=== PATIENT | male | born 1995 | race African-American/Black ===

== ENCOUNTER 2018-05-28 04:42 | Emergency (ER) | payer OTHER ==
[2018-05-28] MEDS ORDERED: Albuterol/Ipratropium 3.0-0.5 MG/3 ML Neb Soln ONE (04:56)
[2018-05-28] MEDS ORDERED: Albuterol/Ipratropium 3.0-0.5 MG/3 ML Neb Soln NEB ONE (05:02)
[2018-05-28] MEDS ORDERED: LORazepam 1 MG Tab PO ONE (05:09)
--- NOTE | 2018-05-28 05:20 | EDM.PDOC ---
ED HPI GENERAL MEDICAL PROBLEM - General Chief Complaint: Respiratory Problem Stated Complaint: NEB TREATMENT Time Seen by Provider: 05/28/18 05:07 Source of Information: Reports: Patient, RN Notes Reviewed History Limitations: Reports: No Limitations - History of Present Illness INITIAL COMMENTS - FREE TEXT/NARRATIVE: 22-year-old gentleman presents emergency department day complaint of difficulty breathing, he has known history of asthma unfortunately he forgot his inhaler home and has been using Primatene Mist without any significant relief chest pain Pain Score (Numeric/FACES): 7 - Related Data Allergies Allergy/AdvReac Type Severity Reaction Status Date / Time mold Allergy Airway Verified 05/28/18 04:47 Tightness pollen extracts Allergy Airway Verified 05/28/18 04:47 Tightness Home Meds: Home Meds Albuterol Sulfate [Proair Hfa] 8.5 gm IH ASDIRECTED 05/28/18 [History] Past Medical History Respiratory History: Reports: Asthma - Infectious Disease History Infectious Disease History: Reports: Chicken Pox Social & Family History - Tobacco Use Smoking Status *Q: Never Smoker - Recreational Drug Use Recreational Drug Use: No ED ROS GENERAL - Review of Systems Review Of Systems: See Below Constitutional: Reports: No Symptoms HEENT: Reports: No Symptoms Respiratory: Reports: Shortness of Breath, Wheezing, Cough Cardiovascular: Reports: No Symptoms GI/Abdominal: Reports: No Symptoms ED EXAM, GENERAL - Physical Exam Exam: See Below Exam Limited By: No Limitations General Appearance: Alert Respiratory/Chest: No Respiratory Distress, Lungs Clear, Normal Breath Sounds, No Accessory Muscle Use, Other (Tachypnea). No: Rhonchi, Wheezing Cardiovascular: Regular Rate, Rhythm, No Murmur Course - Vital Signs Last Recorded V/S: Last Vital Signs Temp 98.1 F 05/28/18 05:00 Pulse 87 05/28/18 05:00 Resp 18 05/28/18 05:00 BP 128/104 H 05/28/18 05:00 Pulse Ox 99 05/28/18 05:00 - Orders/Labs/Meds Orders: Active Orders 24 hr Category Date Time Status RT Aerosol Therapy [RC] ASDIRECTED Care 05/28/18 05:02 Active Meds: Medications Discontinued Medications Generic Name Dose Route Start Last Admin Trade Name Freq PRN Reason Stop Dose Admin Albuterol/Ipratropium Confirm 05/28/18 04:56 05/28/18 05:04 Duoneb 3.0-0.5 Mg/3 Ml Administered 05/28/18 04:57 Not Given Dose 3 ml .ROUTE .STK-MED ONE Albuterol/Ipratropium 3 ml 05/28/18 05:02 05/28/18 05:04 Duoneb 3.0-0.5 Mg/3 Ml NEB 05/28/18 05:03 3 ml ONETIME ONE Administration Lorazepam 1 mg 05/28/18 05:09 05/28/18 05:15 Ativan PO 05/28/18 05:10 1 mg ONETIME ONE Administration Departure - Departure Time of Disposition: Disposition: Home, Self-Care 01 Condition: Fair Clinical Impression: Acute asthma, Panic attack - Discharge Information Referrals: PCP,None [Primary Care Provider] - Forms: ED Department Discharge Additional Instructions: Continue to use your albuterol inhaler as needed, also if he failure anxiety has elevated try the Ativan as needed, Please followup with your primary care provider in 3-5 days if not better, please call return to the emergency department with worsening of symptoms. - My Orders Last 24 Hours: My Active Orders 05/28/18 05:02 RT Aerosol Therapy [RC] ASDIRECTED - Assessment/Plan Last 24 Hours: My Active Orders 05/28/18 05:02 RT Aerosol Therapy [RC] ASDIRECTED Plan: Assessment Acuity = acute Site and laterality = probable panic attack, again the patient with known history of asthma Etiology = probable underlying anxiety Manifestations = none Location of injury = Home Lab values = none Plan He initially had minimal relief from the DuoNeb provided however at significant relief from 1 mg Ativan. Plan is discharge home with albuterol inhaler as well as 1 mg Ativan by mouth every 4-6 hours when necessary total #10 tablets from follow-up with his primary care upon return home This note was dictated using [employer] voice recognition software please call with any questions on syntax or grammar.
== END 2018-05-28 05:36 | disposition home or self-care (01) ==
LOC: JP.ED 04:42
DX: J45.901 Unspecified asthma with (acute) exacerbation (principal); F41.0 Panic disorder [episodic paroxysmal anxiety]; Z79.899 Other long term (current) drug therapy
CPT/HCPCS: 94640; 99284; A9270; J7620-GY